=== PATIENT | male | born 1995 | race Hispanic/Latino ===

== ENCOUNTER → 2019-12-07 | Outpatient (CLI) | payer BC ==
--- NOTE | 2019-12-07 14:43 | Diagnostic Imaging Report ---
Exam: CHEST 2 VIEWS Date: 12/07/2019 2:38 PM INDICATION: ^[id number] ^[id number] ^COUGH / FOLLOW UP BRONCHITIS Comparison: None FINDINGS: Lines/Tubes:None Lungs:The lungs are well inflated. No focal consolidation or pulmonary edema. Nodular nipple shadows are noted bilaterally. Pleura:No pleural effusion. No pneumothorax. Heart/Mediastinum:The cardiomediastinal silhouette is normal in size and contour. Bones/Soft Tissues: No acute osseous abnormality. Upper abdomen: Unremarkable. IMPRESSION: Negative for acute intrathoracic process. Signed by: Abdirashid Sanders MD on 12/07/2019 2:39 PM
== END ==
LOC: RAD 13:58
PROVIDERS: ATTEND Family Medicine
DX: R05 Cough (principal); J40 Bronchitis, not specified as acute or chronic
CPT/HCPCS: 71046